=== PATIENT | female | born 1965 | race African-American/Black ===

== ENCOUNTER 2020-06-19 09:19 | Outpatient (CLI) | payer OTHER ==
--- NOTE | 2020-06-19 10:17 | XRay Report ---
CHEST 2 VIEWS INDICATION / CLINICAL INFORMATION: Physical exam. Menopausal. COMPARISON: None available. FINDINGS: SUPPORT DEVICES: None. HEART / MEDIASTINUM: The heart size and pulmonary vasculature are normal. There is mild aortic tortuo sity without aneurysm. LUNGS / PLEURA: No significant pulmonary or pleural abnormality. No pneumothorax. ADDITIONAL FINDINGS: There is mild thoracic spondylosis. IMPRESSION: No acute findings. Signer Name: Jonny Boyd MD Signed: 06/19/2020 10:12 AM Workstation Name: [id number]
--- NOTE | 2020-06-19 11:49 | Mammography Report ---
DIGITAL SCREENING MAMMOGRAM WITH CAD, 06/19/2020 INDICATION: Routine screening mammography. TECHNIQUE: Digital bilateral 2D mammography was obtained in the craniocaudal and mediolateral obliq ue projections. This examination was interpreted with the benefit of Computer-Aided Detection analysi s. COMPARISON: None. FINDINGS: Breast Density: The breasts are heterogeneously dense, which may obscure small masses. There is no evidence of dominant mass, suspicious calcifications or architectural distortion in eithe r breast. IMPRESSION: Follow up recommendation: Routine yearly BI-RADS Category 1: Negative. A "normal" or negative report should not discourage follow up or biopsy of a clinically significant f inding. A written summary of these findings will be mailed to the patient. The patient will be entered into a mammography reporting system which will generate a reminder letter for the patient's next appointmen t at the appropriate interval. The [employer] recommends yearly mammograms starting at age 40 and continuing as l donaldo as a woman is in good health. Breast MRI is recommended for women with an approximate 20-25% or greater lifetime risk of breast cancer, including women with a strong family history of breast or ova renuka cancer or who have been treated for Hodgkin's disease. Signer Name: Pete Rogers MD Signed: 06/19/2020 11:44 AM Workstation Name: [id number]
== END 2020-06-19 09:20 | disposition home or self-care (01) ==
LOC: MAMMO 09:19
PROVIDERS: ATTEND Family Medicine
DX: Z12.31 Encounter for screening mammogram for malignant neoplasm of breast (principal); N95.9 Unspecified menopausal and perimenopausal disorder; I10 Essential (primary) hypertension; I71.9 Aortic aneurysm of unspecified site, without rupture; M47.814 Spondylosis without myelopathy or radiculopathy, thoracic region
CPT/HCPCS: 71046; 77067